=== PATIENT | female | born 1975 | race Caucasian/White ===

== ENCOUNTER 2019-02-17 08:23 | Emergency (ER) | payer MEDICAID ==
[~2019-02-17] VITALS: Wt 68.2 kg
[~2019-02-17 08:23] MED LIST: [UNRECOGNIZED DRUG - REMARK]
[2019-02-17] MEDS ORDERED: KETOROLAC 60 MG INJ IM STA (11:05)
[2019-02-17] MEDS ORDERED: IBUP-1542 PO (11:34)
[2019-02-17 11:43] VITALS: BP 142/88; PULSE 77; RESP 18
--- NOTE | 2019-02-17 11:53 | ERD ---
ER Documentation Chief Complaint Chief Complaint back of neck pain rad down l. arm HPI Patient is a 43 year old female, with no known past medical history, who presents today for evaluation of 2 day history of left neck pain, radiating down to the left arm, described as intermittent, 8/10, worse at night and with m ovement, associated with numbness. 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 The patient also complains of a left buttock pain, radiating down the left leg, described as intermittent, 7/10, worse with movement, associated with numbness. Patient reports that she has been taking Tylenol for her pain with minimal relief. Last dose was at 7:30 this morning. Ot herwise, patient denies any recent trauma or falls, fever, chills, nausea, vomiting, headache, calf pain, recent travel, chest pain, shortness of breath, abdominal pain, bowel or bladder incontinence. Denies any injuries or trauma. ROS All systems reviewed and are negative except as per history of present illness. Medications Home Meds Active Scripts Ibuprofen* (Motrin*) 600 Mg Tab, 600 MG PO Q6, #30 TAB Prov:CARLITA HOLDER PA-C 02/17/19 Reported Medications [unk meds] No Conflict Check 12/28/12 Allergies Allergies: Coded Allergies: No Known Drug Allergy (Verified Allergy, Unknown, 12/28/12) PMhx/Soc Medical and Surgical Hx: pt denies Medical Hx, pt denies Surgical Hx History of Surgery: No Anesthesia Reaction: No Hx Neurological Disorder: No Hx Respiratory Disorders: No Hx Cardiac Disorders: No Hx Psychiatric Problems: No Hx Miscellaneous Medical Probl: No Hx Alcohol Use: No Hx Substance Use: No Hx Tobacco Use: No Smoking Status: Never smoker FmHx Family History: No diabetes, No coronary disease Physical Exam Vitals Vital Signs Date Temp Pulse Resp B/P (MAP) Pulse Ox O2 O2 Flow FiO2 Time Delivery Rate 02/17/19 97.7 78 20 154/99 100 08:32 (117) Physical Exam Const: Lwe-[id number]-[id number], well-nourished. In no acute distress. Head: Atraumatic, normocephalic Eyes: Normal Conjunctiva without injection ENT: Normal external ear, nose and mouth. Neck: Full range of motion. No meningismus. Left cervical paraspinal and trapezium tenderness to palpation. Resp: Clear to auscultation bilaterally. No wheezing, rhonchi, rales, or crackles. No accessory muscle use. No retractions. Cardio: Regular rate and rhythm, no murmurs Skin: No petechiae or rashes Back: No midline tenderness. No CVA tenderness. Ext: No cyanosis, or edema. Cap refill less than 2 seconds. Distal pulses intact bilaterally. Full range of motion to the bilateral upper and lower extremities. 5/5 motor to the bilateral upper and lower extremities. Equal sensations. Capillary refill less than 2 seconds. No deformities noted. Positive straight leg test. Neur: Awake and alert. Normal gait and coordination. Muscle strength 5/5. Sensation intact bilaterally. Psych: Normal Mood and Affect Results 24 hrs Laboratory Tests Test 02/17/19 11:28 POC Beta HCG, Qualitative NEGATIVE Current Medications Medications Dose Sig/Gorge Start Time Status Last (Trade) Ordered Route PRN Stop Time Admin Dose Reason Admin Ketorolac 60 mg ONCE STAT 02/17/19 DC Tromethamine IM 11:05 (Toradol) 02/17/19 11:06 Procedures/MDM Patient is a 43 year old female who presents with left-sided neck pain radiating down the left arm and left leg pain for the past 2 days. Patient was noted to have some left cervical paraspinal and trapezium tenderness to palpation, but was neurovascularly intact bilaterally. No midline tenderness or deformities noted. Patient was also noted to have a stable gait. Patient was given Toradol 60 mg here in the ED with improvement of her pain. Patient's symptoms are most likely due to cervical radiculopathy and sciatica at this time. Patient is ambulating here in the ED without difficulty. Denies sadd le anesthesia, numbness or tingling, urine or bowel incontinence, weakness. Low suspicion for cauda equina syndrome, cord compression, nephrolithiasis, aortic aneurysm, aortic dissection, epidural abscess, spinal hematoma, malignancy, pyelonephritis, or other emergent conditions. Diagnosis: Radiculopathy, Sciatica Discharge medications: Ibuprofen Follow up with primary care physician in 1-2 days. Instructed patient to return to the ED sooner for any worsening symptoms. Patient's questions were answered. Patient is hemodynamically stable. Patient understood and agreed with discharge plan. Patient discharged stable. Disclaimer: Inadvertent spelling and grammatical errors are likely due to EHR/dictation software use and do not reflect on the overall quality of patient care. Also, please note that the electronic time recorded on this note does not necessarily reflect the actual time of the patient encounter. Departure Diagnosis: Primary Impression: Cervical radiculopathy Additional Impression: Sciatica Laterality: unspecified laterality Qualified Codes: M54.30 - Sciatica, unspecified side Condition: Stable Patient Instructions: Understanding Sciatica, Radiculopathy, Cervical, Back Pain W/ Sciatica Referrals: [facility] YOU HAVE RECEIVED A MEDICAL SCREENING EXAM AND THE RESULTS INDICATE THAT YOU DO NOT HAVE A CONDITION THAT REQUIRES URGENT TREATMENT IN THE EMERGENCY DEPARTMENT. FURTHER EVALUATION AND TREATMENT OF YOUR CONDITION CAN WAIT UNTIL YOU ARE SEEN IN YOUR DOCTORS OFFICE WITHIN THE NEXT 1-2 DAYS. IT IS YOUR RESPONSIBILITY TO MAKE AN APPOINTMENT FOR FOLOW-UP CARE. IF YOU HAVE A PRIMARY DOCTOR --you should call your primary doctor and schedule an appointment IF YOU DO NOT HAVE A PRIMARY DOCTOR YOU CAN CALL OUR PHYSICIAN REFERRAL HOTLINE AT IF YOU CAN NOT AFFORD TO SEE A PHYSICIAN YOU CAN CHOSE FROM THE FOLLOWING [facility] [address] [facility]. [facility] [address] [facility]. [facility] [address] [facility] [facility] [address] [facility]. [facility] [address] [facility]. [facility]. [address] [facility] YOU HAVE RECEIVED A MEDICAL SCREENING EXAM AND THE RESULTS INDICATE THAT YOU DO NOT HAVE A CONDITION THAT REQUIRES URGENT TREATMENT IN THE EMERGENCY DEPARTMENT. FURTHER EVALUATION AND TREATMENT OF YOUR CONDITION CAN WAIT UNTIL YOU ARE SEEN IN YOUR DOCTORS OFFICE WITHIN THE NEXT 1-2 DAYS. IT IS YOUR RESPONSIBILITY TO MAKE AN APPOINTMENT FOR FOLOW-UP CARE. IF YOU HAVE A PRIMARY DOCTOR --you should call your primary doctor and schedule and appointment IF YOU DO NOT HAVE A PRIMARY DOCTOR YOU CAN CALL OUR PHYSICIAN REFERRAL HOTLINE AT . IF YOU CAN NOT AFFORD TO SEE A PHYSICIAN YOU CAN CHOSE FROM THE FOLLOWING [facility] INSTITUTIONS: [facility] [address] [place] [address] [facility] [address] [place] [address] [facility] [address] [place] [address] [facility] URGENT CARE/SPECIALTIES Additional Instructions: Llame al doctor MAANA y loren sharad JOSEPH PARA DENTRO DE 2-3 RANDALL.Dgale a la secretaria que nosotros le instruimos hacer esta joseph.Avise o llame si lebron condicin se empeora antes de la joseph. Regresa aqui si peor o no mejor. CARLITA HOLDER PA-C Feb 17, 2019 11:46
== END 2019-02-17 11:47 | disposition home or self-care (01) ==
LOC: FTE 08:23
DX: M54.12 Radiculopathy, cervical region (principal); M54.30 Sciatica, unspecified side
CPT/HCPCS: 81025; 96372; J1885; Z7502